=== PATIENT | male | born 1985 | race Caucasian/White ===

== ENCOUNTER → 2018-10-22 12:53 | Outpatient (CLI) | payer MEDICARE, MEDICAID, SELFPAY ==
--- NOTE | 2018-10-22 12:56 | DI.US.S_ITS ---
PROCEDURE: US SCROTUM INDICATIONS: PAIN AND SWELLING OF THE LEFT TESTICLE TECHNIQUE: Real-time scanning was performed of the scrotum and testicles, with image documentation. Color and pulse Doppler interrogation was performed of both testicles. COMPARISON: None. FINDINGS: Right: Testicle is normal in size at 3.6 x 2.3 x 2.7 cm, and homogenous in echotexture. Epididymis is normal in overall size and morphology. Multiple sub-5 mm epididymal cyst. No hydrocele or varicoceles. Overlying scrotal skin is normal in thickness. Left: Testicle is normal in size at 3.8 x 2.3 x 2.8 cm, and homogeneous in echotexture. Epididymis is normal in overall size and morphology. Multiple epididymal cysts largest measuring 5 mm. No hydrocele or varicoceles. Overlying scrotal skin is normal in thickness. Doppler: Color and pulse Doppler demonstrate normal and symmetric arterial flow in both testicles. IMPRESSION: 1. Normal appearance of the testicles. 2. Small epididymal cysts bilaterally. Dictated by: Brooks BOONE Interpreted: Robbin Chauhan MD on 10/22/2018 at 13:58 Approved by: Robbin Chauhan M.D. on 10/23/2018 at 9:45
== END ==
PROVIDERS: PCP Physician Assistant; Visit Provider Physician Assistant
DX: N50.812 Left testicular pain (principal); N50.3 Cyst of epididymis
CPT/HCPCS: 76870

== ENCOUNTER → 2019-01-15 13:27 | Outpatient (CLI) | payer MEDICARE, MEDICAID, SELFPAY ==
--- NOTE | 2019-01-15 13:30 | DI.RAD.S_ITS ---
PROCEDURE: XR FOOT LT MIN 3V INDICATIONS: Injury to left foot due to fall-poss fracture of foot or toe TECHNIQUE: 3 views of the foot were acquired. COMPARISON: None. FINDINGS: Bones: No fractures or dislocations. No suspicious bony lesions. Soft tissues: No tibiotalar joint effusion. Achilles tendon appears normal. IMPRESSION: No acute radiographic findings. If pain persists, repeat study in 5-7 days is recommended to exclude occult fracture. Dictated by: Lucinda Luciano M.D. on 01/15/2019 at 13:48 Approved by: Lucinda Luciano M.D. on 01/15/2019 at 13:49
== END ==
PROVIDERS: PCP Physician Assistant; Visit Provider Physician Assistant
DX: M79.672 Pain in left foot (principal); S99.922A Unspecified injury of left foot, initial encounter; W19.XXXA Unspecified fall, initial encounter
CPT/HCPCS: 73630